=== PATIENT | female | born 1965 | race Caucasian/White ===

== ENCOUNTER 2019-07-16 15:19 | Inpatient (IN) | payer OTHER ==
[2019-07-16] MEDS ORDERED: Magnesium 2 GM/50 ML BAG (IN WATER) ONE (16:16)
[2019-07-16] MEDS ORDERED: Ondansetron ODT 4 MG TAB SL PRN (16:25)
[2019-07-16] MEDS ORDERED: Ondansetron PF 4 MG/2 ML Vial IVP PRN (16:25)
[2019-07-16] MEDS ORDERED: Albuterol Sulfate 2.5 mg/0.5 ml Neb ONE (16:29)
[2019-07-16] MEDS ORDERED: Albuterol Sulfate 2.5 mg/3 ml Neb ONE (16:29)
[2019-07-16] MEDS ORDERED: Acetaminophen 500 MG TAB ONE (17:13)
[2019-07-16 19:55] VITALS: BMI 41.9
[2019-07-16] MEDS ORDERED: Calcium Carbonate 500 MG ChewTAB PO PRN (22:28)
[2019-07-16] MEDS ORDERED: Lorazepam 1 MG TAB PO SCH (22:30)
[2019-07-16] MEDS ORDERED: Azithromycin 500 MG in Sodium Chloride 0.9% 250 ML 250 ML IVPB SCH (22:30)
[2019-07-16] MEDS ORDERED: traZODone HCl 50 MG TAB PO SCH (22:30)
[2019-07-16] MEDS ORDERED: Cepastat Lozenges 1 LOZ PO PRN (22:31)
[2019-07-16] MEDS ORDERED: hydrALAZINE 20 MG/ML VIAL SLOW IVP PRN (22:31)
[2019-07-16] MEDS ORDERED: Lorazepam 0.5 MG TAB PO SCH (22:45)
[2019-07-16] MEDS ORDERED: Cefepime 1 GM in Sodium Chloride 0.9% 100 ML IVPB SCH (23:00)
[2019-07-16] MEDS: guaiFENesin ER 600 MG TAB PO SCH (23:02)
[2019-07-16] MEDS: traMADol HCl 50 MG TAB PO PRN (23:09)
[2019-07-16] MEDS: Cyclobenzaprine 10 MG TAB PO PRN (23:09)
[2019-07-16] MEDS: methylPREDNISolone Sod Succ/PF 125 MG/2 ML VIAL IVP SCH (23:10)
[2019-07-17] MEDS: Diabetic Tussin 200 MG/10 ML UDCUP PO PRN ×3 (02:39→23:06)
[2019-07-17] MEDS: Acetaminophen 325 MG TAB PO PRN ×2 (02:41→08:47)
--- NOTE | 2019-07-17 03:17 | HP ---
The patient was seen and examined on July 16, 2019. PRIMARY CARE PHYSICIAN: Sharif Kendall. CHIEF COMPLAINT: Shortness of breath. HISTORY OF PRESENT ILLNESS: The patient is a 53-year-old white female with COPD, with chronic respiratory failure on 3 L oxygen, presented to the emergency room with worsening shortness of breath. She initially presented to [facility] and was transferred to this facility. The patient was diagnosed with pneumonia approximately 3 months ago and was admitted to [facility]. She was discharged after 7 days. Three weeks later, she had another episode of bronchitis that improved with Medrol Dosepak. Since then, she has on and off shortness of breath. Over the last 2 days, the patient developed worsening shortness of breath along with chest tightness and wheezing. She was short of breath on minimal exertion. She also had cough productive of thick whitish phlegm. Her temperature was 102.4 at home. She denies any orthopnea, leg swelling, sick contacts, chest discomfort, or syncope. Her initial vital signs at [facility] showed temperature of 99.6, respirations of 22, pulse rate of 117, with a blood pressure of 130/72, with O2 saturation of 93% on 3 L nasal cannula. Her workup was consistent with left lower lobe pneumonia. She received ceftriaxone, azithromycin, Solu-Medrol with IV fluid and nebulizer treatment, and was transferred to this facility. A CT angiogram of the chest was negative for pulmonary embolism. PAST MEDICAL HISTORY: 1. COPD. 2. Chronic hypoxic respiratory failure, on 3 L nasal cannula. 3. Chronic low back pain. 4. Anxiety/PTSD. 5. Depression with suicidal attempt in 2013. The patient denies any current suicidal ideation. 6. Morbid obesity with a BMI of 41.9. 7. History of renal calculi. 8. Mitral valve prolapse. 9. History of right breast mass, followed by her primary care physician. PAST SURGICAL HISTORY: 1. section x2. 2. Back surgery. 3. Right hip surgery. ALLERGIES: THE PATIENT IS ALLERGIC TO TRAZODONE. CURRENT HOME MEDICATIONS: 1. Lorazepam 1 mg b.i.d. 2. Seroquel 300 mg at bedtime. 3. DuoNeb as needed. 4. Trazodone 50 mg at bedtime. SOCIAL HISTORY: The patient is currently on 2 to 3 cigarettes a day and is trying to quit smoking. No alcohol or drug use. She currently lives at home with her family. FAMILY HISTORY: Positive for father with lung cancer with COPD. PHYSICAL EXAMINATION: VITAL SIGNS: As discussed above. GENERAL: A 53-year-old female, in [id number] respiratory distress, able to complete short phrases. HEENT: Head, atraumatic and normocephalic. Sclerae anicteric. Moist mucous membranes. No oral lesion. NECK: Supple. No JVD appreciated. No carotid bruit. LUNGS: Showed diffuse expiratory wheezing with rales and rhonchi at the left base. Mild accessory muscle use. HEART: S1, S2 present. Regular. Tachycardic. No rubs or gallops. ABDOMEN: Soft, obese. Bowel sounds present. No rebound or guarding. EXTREMITIES: No edema or calf tenderness. NEUROLOGIC: Grossly nonfocal. Moves all 4 extremities. PSYCHIATRIC: Alert, awake, and oriented x3. SKIN: Warm and dry. LYMPH NODES: No palpable lymph nodes in the neck. PERIPHERAL VASCULAR: Radial pulses palpable bilaterally. MUSCULOSKELETAL: No joint swelling tenderness. LABORATORY FINDINGS: WBC 9.7 with hemoglobin 14.3, hematocrit 43.8, platelet of 299. D-dimer was 0.46. Chemistry showed sodium 141, potassium 4, chloride 107, bicarb 22, BUN 7, creatinine 0.89. Lactic acid 2.5. BNP 39.4. Troponin was negative. IMAGING STUDIES: Chest x-ray by my review showed left lower lobe infiltrate. CT angiogram by my review was negative for pulmonary embolism. It showed right breast mass. Please note that the patient is aware of this right breast mass. EKG by my review showed sinus tachycardia. IMPRESSION: 1. Acute on chronic hypoxic respiratory failure secondary to pneumonia with chronic obstructive pulmonary disease exacerbation. 2. Severe sepsis secondary to left lower lobe pneumonia, suspected gram negative. 3. Chronic obstructive pulmonary disease exacerbation. 4. Anxiety/posttraumatic stress disorder. 5. Depression, mild, stable. The patient denies any suicidal ideation. 6. Morbid obesity with a BMI of 41.9. 7. Chronic low back pain. 8. Chronic kidney disease, stage 2. PLAN: The patient will be monitored on the medical floor. We will start her on cefepime along with azithromycin. Consult Pulmonary. Nebulizer treatment every 4 hours. Continue O2 supplementation. We will resume all of her home medications. Add Mucinex. Recheck lactic acid with the next blood draw. Repeat chest x-ray in 4 weeks. The patient understands the above plan of care. Job ID: [id number]
[2019-07-17] MEDS: methylPREDNISolone Sod Succ/PF 125 MG/2 ML VIAL IVP SCH ×4 (05:16→23:06)
[2019-07-17] MEDS: traMADol HCl 50 MG TAB PO PRN (05:19)
[2019-07-17 05:56] LABS: #Lymphocytes 0.8 thou/uL (1.20-3.40); #Monocytes 0.3 thou/uL (0.11-0.59); #Neutrophils 9.7 thou/uL (1.40-6.50); %Basophils 0.1 % (0.0-1.0); %Eosinophils 0.2 % (0.0-10.0); %Lymphocytes 7.3 % (21.0-51.0); %Neutrophils 89.4 % (42.0-75.0); Hemoglobin 13.6 g/dL (12.0-16.0); Mean Corpuscular HGB CONC 32.5 g/dL (32.0-36.0); Mean Corpuscular Hemoglobin 31.8 pg (27.0-31.0); Mean Corpuscular Volume 97.8 fL (78.0-98.0); Mean Platelet Volume 6.5 fL (7.4-10.4); Platelet Count 274 thou/uL (130-400); RBC Distribution Width 11.5 % (11.5-14.5); Red Blood Cell (RBC) Count 4.29 mill/uL (4.20-5.40); White Blood Cell (WBC) Count 10.9 thou/uL (4.8-10.8)
[2019-07-17 06:21] LABS: Phosphorus 2.4 mg/dL (2.3-4.7)
[2019-07-17 06:23] LABS: Anion Gap 14 mmol/L (10-20); BUN (Urea Nitrogen) 8 mg/dL (9.8-20.1); Calc. Creatinine Clearance 162 mL/min (70-130); Calcium 8.5 mg/dL (7.8-10.44); Carbon Dioxide 20 mmol/L (22-29); Chloride 111 mmol/L (98-107); Estimated GFR-MDRD 83; Glucose 150 mg/dL (70-105); Magnesium 2.3 mg/dL (1.6-2.6); Potassium 4.4 mmol/L (3.5-5.1); Sodium 141 mmol/L (136-145)
[2019-07-17 06:24] LABS: Lactic Acid 1.1 mmol/L (0.5-2.2)
[2019-07-17] MEDS: Cefepime 1 GM in Sodium Chloride 0.9% 100 ML IVPB SCH ×2 (08:47→20:43)
[2019-07-17] MEDS: Lorazepam 1 MG TAB PO PRN ×2 (08:47→23:03)
[2019-07-17] MEDS: Famotidine 20 MG TAB PO SCH ×2 (08:48→20:44)
[2019-07-17] MEDS: Senokot S 8.6-50 MG TAB PO SCH ×2 (08:48→20:44)
[2019-07-17] MEDS: Multivit, Therapeutic 1 TAB PO SCH (08:48)
[2019-07-17] MEDS: Saccharomyces boulardii 250 MG CAP PO SCH (08:48)
[2019-07-17] MEDS: Enoxaparin Sodium 40 MG/0.4 ML SYRINGE SC SCH (08:49)
[2019-07-17] MEDS: guaiFENesin ER 600 MG TAB PO SCH ×2 (08:49→20:44)
[2019-07-17] MEDS ORDERED: Lorazepam 1 MG TAB PO SCH (09:00)
[2019-07-17] MEDS: Cyclobenzaprine 10 MG TAB PO PRN ×2 (12:05→23:02)
--- NOTE | 2019-07-17 13:13 | CON ---
DATE OF CONSULTATION: HISTORY OF PRESENT ILLNESS: A 53-year-old morbidly obese female, who lives in [place], 117 kg, presents to the hospital with shortness of breath, coughing, and wheezing. She tells me she was diagnosed with COPD at age 29, secondhand smoke, though she did smoke for a period of time. She is presently disabled because of COPD. She has been to the [facility] some multiple times. She was told to go to a chief projectionist, but apparently did not take her insurance in [place], [place]. Now presents to the [facility] with shortness of breath and coughing without any fever or chills. She has low-flow O2 at home. It appears she can barely walk 50 feet without getting markedly short of breath. She is snoring. She has witnessed apnea. She has daytime fatigue. Chest x-ray was taken, which shows a left-sided infiltrate and a CAT scan confirms there is no PE was seen. She is grossly obese. No prior history of TB, but she has been in significant wheezing. Now is asthmatic. PAST MEDICAL HISTORY: COPD, asthma, depression, PTSD, and tobacco abuse. PAST SURGICAL HISTORY: Back surgery, hip surgery, orthopedic surgery, and . HOME MEDICINES: 1. Trazodone 50. 2. Seroquel 300. 3. DuoNeb. 4. Benztropine 1 mg. ALLERGIES: NONE. SOCIAL/FAMILY HISTORY: Disabled. Lives with who is also apparently disabled. PHYSICAL EXAMINATION: VITAL SIGNS: Temperature 98, pulse 90, and respirations 20, saturations are 98% on room air, blood pressure 150/75. CHEST: Diffuse wheezing. CARDIAC: Normal S1 and S2. No gallops. ABDOMEN: Soft without masses. LABORATORY DATA: White count 10,000. Lytes are normal. ASSESSMENT: Left-sided infiltrate, possible pneumonia, chronic asthma, COPD, morbid obesity, and sleep apnea. PLAN: She needs to be on indefinite Singulair and inhaled steroid. Otherwise, I agree with present treatment. I will follow outpatient sleep study. This is a 70-minute consultation note, 50% direct patient care. Job ID: [id number]
[2019-07-17] MEDS ORDERED: Azithromycin 500 MG in Sodium Chloride 0.9% 250 ML 250 ML IVPB SCH (14:00)
--- NOTE | 2019-07-17 15:50 | PDOC.HOSPP ---
- Subjective Encounter Date: 07/17/19 Encounter Time: 07:00 Subjective: breathing better now, no chest pain or palp she ambulates minimally at home has home O2 - Objective Vital Signs & Weight: Vital Signs (12 hours) Temp Pulse Resp BP Pulse Ox 07/17/19 14:46 84 16 92 L 07/17/19 11:50 97.7 F 90 20 103/65 93 L 07/17/19 10:41 87 16 97 07/17/19 08:00 98.4 F 90 20 111/75 93 L 07/17/19 07:22 94 L 07/17/19 07:21 85 16 94 L 07/17/19 05:00 98.1 F 90 17 120/65 93 L Weight Weight 251 lb 15.814 oz I&O: 07/16/19 07/17/19 07/18/19 06:59 06:59 06:59 Intake Total 780 Balance 780 Result Diagrams: 07/17/19 05:19 07/17/19 05:19 Hospitalist ROS - Medication Medications: Active Medications Generic Name Dose Route Start Last Admin Trade Name Freq PRN Reason Stop Dose Admin Acetaminophen 650 mg 07/16/19 22:28 07/17/19 08:47 Tylenol PO 650 mg Q4H PRN Administration Headache/Fever/Mild Pain (1-3) Albuterol/Ipratropium 3 ml 07/16/19 22:30 07/17/19 14:46 Duoneb NEB 3 ml [id number] ТАТЬЯНА Administration Cyclobenzaprine HCl 5 mg 07/16/19 22:25 07/17/19 12:05 Flexeril PO 07/18/19 22:26 5 mg TID PRN Administration Muscle Spasm Enoxaparin Sodium 40 mg 07/17/19 09:00 07/17/19 08:49 Lovenox SC 40 mg 0900 ТАТЬЯНА Administration Famotidine 20 mg 07/17/19 09:00 07/17/19 08:48 Pepcid PO 20 mg BID ТАТЬЯНА Administration Guaifenesin 600 mg 07/17/19 09:00 07/17/19 08:49 Mucinex PO 600 mg Q12HR ТАТЬЯНА Administration Guaifenesin 200 mg 07/16/19 22:31 07/17/19 10:33 Robitussin Sf PO 200 mg Q4H PRN Administration Cough Cefepime HCl 1 gm/ Sodium 100 mls @ 200 mls/hr 07/17/19 09:00 07/17/19 08:47 Chloride IVPB 100 mls Q12HR ТАТЬЯНА Administration Lorazepam 1 mg 07/16/19 22:32 07/17/19 08:47 Ativan PO 1 mg BID PRN Administration Anxiety Methylprednisolone Sodium Succinate 40 mg 07/16/19 23:59 07/17/19 12:06 Solu-Medrol IVP 40 mg Q6HR ТАТЬЯНА Administration Multivitamins 1 tab 07/17/19 09:00 07/17/19 08:48 Theragran PO 1 tab DAILY ТАТЬЯНА Administration Saccharomyces Boulardii 250 mg 07/17/19 09:00 07/17/19 08:48 Florastor PO 250 mg DAILY ТАТЬЯНА Administration Senna/Docusate Sodium 1 tab 07/17/19 09:00 07/17/19 08:48 Senokot S PO 1 tab BID ТАТЬЯНА Administration - Exam General Appearance: NAD, awake alert Eye: PERRL, anicteric sclera ENT: no oropharyngeal lesions, moist mucosa Neck: supple, no JVD Heart: RRR, no murmur Respiratory: no wheezes, no rales, rhonchi Gastrointestinal: soft, non-tender, non-distended, normal bowel sounds Extremities: no cyanosis, no edema Neurological: cranial nerve grossly intact, no focal deficits Psychiatric: normal affect, A&O x 3 Hosp A/P (1) COPD exacerbation Code(s): J44.1 - CHRONIC OBSTRUCTIVE PULMONARY DISEASE W (ACUTE) EXACERBATION Status: Acute (2) PNA (pneumonia) Code(s): J18.9 - PNEUMONIA, UNSPECIFIED ORGANISM Status: Acute Qualifiers: Pneumonia type: due to unspecified organism Laterality: left Lung location: lower lobe of lung Qualified Code(s): J18.9 - Pneumonia, unspecified organism (3) Morbid obesity Code(s): E66.01 - MORBID (SEVERE) OBESITY DUE TO EXCESS CALORIES Status: Chronic (4) EDMUNDO (obstructive sleep apnea) Code(s): G47.33 - OBSTRUCTIVE SLEEP APNEA (ADULT) (PEDIATRIC) Status: Suspected (5) Acute respiratory failure with hypoxia Code(s): J96.01 - ACUTE RESPIRATORY FAILURE WITH HYPOXIA Status: Acute (6) Insomnia Code(s): G47.00 - INSOMNIA, UNSPECIFIED Status: Chronic Qualifiers: Insomnia type: unspecified Qualified Code(s): G47.00 - Insomnia, unspecified - Plan is on cefepime and doxy, nebs, steroids, dulera, singulair, mucinex dc trazadone, continue seroquel high dose HS, is at risk of resp failure with duel psychotropic meds at bedtime suspected EDMUNDO for outpt sleep study to ambulate in hallway as tolerated hemostable has home O2
[2019-07-17] MEDS: Doxycycline 100 MG CAP PO SCH (20:44)
[2019-07-17] MEDS ORDERED: Montelukast Sodium 10 mg Tablet PO SCH (21:00)
[2019-07-17] MEDS ORDERED: traZODone HCl 50 MG TAB PO SCH (21:00)
[2019-07-17] MEDS: Mometasone/Formoterol 120 PUFF INHALER INH SCH (21:24)
[2019-07-18] MEDS: methylPREDNISolone Sod Succ/PF 125 MG/2 ML VIAL IVP SCH (05:28)
[2019-07-18] MEDS: Diabetic Tussin 200 MG/10 ML UDCUP PO PRN (05:28)
[2019-07-18 05:32] LABS: #Lymphocytes 0.9 thou/uL (1.20-3.40); #Monocytes 0.5 thou/uL (0.11-0.59); #Neutrophils 16.8 thou/uL (1.40-6.50); %Eosinophils 0.2 % (0.0-10.0); %Neutrophils 91.8 % (42.0-75.0); Mean Corpuscular HGB CONC 32.2 g/dL (32.0-36.0); Mean Corpuscular Hemoglobin 31.7 pg (27.0-31.0); Mean Corpuscular Volume 98.5 fL (78.0-98.0); Mean Platelet Volume 6.6 fL (7.4-10.4); Platelet Count 294 thou/uL (130-400); RBC Distribution Width 11.5 % (11.5-14.5); Red Blood Cell (RBC) Count 4.09 mill/uL (4.20-5.40); White Blood Cell (WBC) Count 18.3 thou/uL (4.8-10.8)
[2019-07-18 05:51] LABS: Anion Gap 11 mmol/L (10-20); BUN (Urea Nitrogen) 11 mg/dL (9.8-20.1); Calc. Creatinine Clearance 172 mL/min (70-130); Calcium 8.5 mg/dL (7.8-10.44); Carbon Dioxide 26 mmol/L (22-29); Chloride 109 mmol/L (98-107); Estimated GFR-MDRD 88; Glucose 189 mg/dL (70-105); Potassium 3.9 mmol/L (3.5-5.1); Sodium 142 mmol/L (136-145)
[2019-07-18] MEDS: Mometasone/Formoterol 120 PUFF INHALER INH SCH (07:23)
[2019-07-18] MEDS: Senokot S 8.6-50 MG TAB PO SCH (08:53)
[2019-07-18] MEDS: Famotidine 20 MG TAB PO SCH (08:53)
[2019-07-18] MEDS: guaiFENesin ER 600 MG TAB PO SCH (08:53)
[2019-07-18] MEDS: Doxycycline 100 MG CAP PO SCH (08:53)
[2019-07-18] MEDS: Saccharomyces boulardii 250 MG CAP PO SCH (08:53)
[2019-07-18] MEDS: Multivit, Therapeutic 1 TAB PO SCH (08:53)
[2019-07-18] MEDS: Cefepime 1 GM in Sodium Chloride 0.9% 100 ML IVPB SCH (08:56)
[2019-07-18] MEDS: Enoxaparin Sodium 40 MG/0.4 ML SYRINGE SC SCH (08:56)
[2019-07-18] MEDS: Cyclobenzaprine 10 MG TAB PO PRN (09:11)
--- NOTE | 2019-07-18 09:55 | PRG ---
DATE OF SERVICE: 07/18/2019 SUBJECTIVE: This morning, the patient is better, less short of breath, less cough, less wheezing. OBJECTIVE: VITAL SIGNS: Temperature 97, pulse 87, respiratory rate 24, saturations 98% on room air, blood pressure 122/76. CHEST: Decreased breath sounds. No wheezing. CARDIAC: Normal S1 and S2. No gallops. ABDOMEN: No masses. IMPRESSION: Bronchial asthma exacerbation, morbid obesity, and sleep apnea. PLAN: 1. Please note, she can be discharged home to follow up with her primary care physician and russian history professor out of town. 2. She needs to be discharged home on Singulair 10 mg a day, inhaled steroid either Dulera or Symbicort 2 puffs twice a day, Singulair 10 mg at nighttime, antibiotics for a week. 3. Encourage to lose weight. 4. Encourage to have an outpatient sleep study. Job ID: [id number]
[2019-07-18] MEDS: Lorazepam 1 MG TAB PO PRN (10:22)
[2019-07-18 15:00] VITALS: BP 126/86; TEMP 98.1
--- NOTE | 2019-07-18 17:28 | DIS ---
DATE OF ADMISSION: 07/16/2019 DATE OF DISCHARGE: 07/18/2019 DISCHARGE DISPOSITION: Home. PRIMARY DISCHARGE DIAGNOSIS: Acute respiratory failure with hypoxia secondary to chronic obstructive pulmonary disease exacerbation and pneumonia, resolving. SECONDARY DISCHARGE DIAGNOSES: Morbid obesity, suspected obstructive sleep apnea, insomnia. PROCEDURES DONE DURING HOSPITALIZATION: CT angio chest done on the day of admission showed no evidence of PE. The patient had an incidental finding of 1.9 x 3.2 cm oval circumscribed mass in the right breast, for which she will need a mammogram in the outpatient setting. Influenza A and B antigens were negative. One of two blood cultures grew gram-positive huong, likely contaminant. Had a white count of 9.7 with hemoglobin and hematocrit of 14 and 43. Discharge white count was 18, likely due to steroids. BUN 11, creatinine 0.7. BNP 39. INPATIENT CONSULT: Dr. Gnetile for Pulmonology. DISCHARGE MEDICATIONS: 1. DuoNeb q.i.d. p.r.n. 2. Ativan 1 mg p.o. twice daily. 3. Seroquel 300 mg p.o. at bedtime. 4. Doxycycline 100 mg p.o. twice daily for 6 days. 5. Dulera inhaler 200/5 mcg two puffs twice daily. 6. Singulair 10 mg p.o. q.p.m. 7. Prednisone taper starting at 10 mg twice daily for 3 days, then daily for 2 days, and to discontinue. ALLERGIES: TRAZODONE. DISCHARGE PLAN: The patient to follow up with her primary care physician at [facility] in 1 week. BRIEF COURSE DURING HOSPITALIZATION: The patient initially came to ER with complaints of shortness of breath and cough with expectoration of altered phlegm. She also had a temperature of 102 at home prior to arrival. She was placed on broad-spectrum antibiotics and has been transitioned to oral doxycycline at the time of discharge. The patient has underlying obstructive sleep apnea and likely obesity hypoventilation syndrome as well and needs outpatient sleep study. She was on Seroquel 300 mg at bedtime and trazodone 50 mg at bedtime as well. She was taking these two for insomnia per the patient. Her trazodone was discontinued. She has recovered well with her COPD exacerbation. Prior to discharge, the patient is ambulating in the room. She is essentially on room air and saturating 93% at the time of discharge. She has been cleared by Dr. Gentile for discharge. The patient was strongly counseled to have outpatient sleep study through her primary care physician's office. Please note, I have seen and examined the patient on the day of discharge. Job ID: [id number]
--- NOTE | 2019-07-19 04:58 | PQF ---
FELIZ RODRIGUEZ VINAYA KUMAR MD [id number] -[id number] CLINICAL DOCUMENTATION CLARIFICATION FORM: POST DISCHARGE Addendum to original discharge summary date: ____ Late entry note date: __ DATE: 07/19/2019 ATTN: Giovani Aguilera Please exercise your independent, professional judgment in responding to the clarification form. Clinical indicators are provided on the bottom of this form for your review Please check appropriate box(s) to clarify if the following diagnosis has been ruled in or ruled out: Sepsis [ ] Ruled in diagnosis [ ] Continue to treat [ ] Resolved [x ] Ruled out diagnosis [ ] Cannot rule out diagnosis [ ] Other diagnosis [ ] Unable to determine In addition, please specify: Present on Admission (POA): [x ] Yes [ ] No [ ] Unable to determine For continuity of documentation, please document condition throughout progress notes and discharge summary. Thank You. CLINICAL INDICATORS - SIGNS / SYMPTOMS / LABS Vital sign 2/ Resp 22, O2 sat 93 Laboratory Chemistry / WBC 10.9 H&P p1 2/2 Dr Carlos Presented to ER with worsening SOB H&P p1 2/2 Dr Carlos Her workup was consistent with left lower lobe pneumonia RISK FACTORS H&P p1 2/2 COPD H&P p1 2/2 Chronic Respiratory failure on 3L oxygen H&P p3 2/2 Severe Sepsis secondary to LLL Pneumonia H&P p3 2/2 Acute on chronic hypoxic respiratory failure H&P p3 2/2 COPD exacerbation TREATMENTS MAR 2/ IV Cefepime MAR 2/ Doxycycline Respiratory panel 2/2 Oxygen 3L via nasal cannula H&P p3 2/2 Repeat chest x-day Pulmonary consult 07/17 Dr Seferino Tello (This form is maintained as a part of the permanent medical record) 2014 [employer]. All Rights Reserved [email or web address]
[2019-07-19] MEDS ORDERED: predniSONE 20 MG TAB PO SCH (08:00)
== END 2019-07-18 15:06 | disposition home or self-care (01) | DRG 193 ==
LOC: ERS 15:19 → T4-B 16:40
PROVIDERS: ADMIT Internal Medicine; ATTEND Internal Medicine
DX: J18.9 Pneumonia, unspecified organism (principal); J96.21 Acute and chronic respiratory failure with hypoxia; J44.1 Chronic obstructive pulmonary disease with (acute) exacerbation; J44.0 Chronic obstructive pulmonary disease with (acute) lower respiratory infection; Z68.41 Body mass index [BMI] 40.0-44.9, adult; E66.2 Morbid (severe) obesity with alveolar hypoventilation; J45.901 Unspecified asthma with (acute) exacerbation; G47.00 Insomnia, unspecified; F41.9 Anxiety disorder, unspecified; F43.10 Post-traumatic stress disorder, unspecified; F32.9 Major depressive disorder, single episode, unspecified; G89.29 Other chronic pain; M54.5 Low back pain; F17.210 Nicotine dependence, cigarettes, uncomplicated; N18.2 Chronic kidney disease, stage 2 (mild); Z88.8 Allergy status to other drugs, medicaments and biological substances; Z99.81 Dependence on supplemental oxygen; Z79.899 Other long term (current) drug therapy
CPT/HCPCS: 36415; 80048; 83605; 83735; 84100; 85025; 94640; 94760; 96361; 96365; J0692; J1650; J2930; J3475; J3490; J7611; J7620

== ENCOUNTER 2019-08-14 12:39 | Inpatient (IN) | payer OTHER ==
[2019-08-14] MEDS ORDERED: Aspirin 300 MG Suppository ONE (12:59)
[2019-08-14] MEDS ORDERED: Metoclopramide HCl 10 MG/2 ML VIAL ONE (12:59)
[2019-08-14] MEDS ORDERED: diphenhydrAMINE 50 MG/ML VIAL ONE (12:59)
[2019-08-14] MEDS ORDERED: Lorazepam 2 MG/ML VIAL ONE (15:13)
--- NOTE | 2019-08-14 15:38 | HP ---
PRIMARY CARE PHYSICIAN: Darvin Olguin. CHIEF COMPLAINT: Acute stroke. HISTORY OF PRESENT ILLNESS: This is a 54-year-old white female with a history of a previous stroke back in 2016 or 17 that had some right-sided weakness and a right peripheral vision defect that had mostly resolved except for the vision defect. She was in her normal state of health until the past couple of months when she has been struggling with some COPD exacerbations and pneumonia episodes. She was admitted here last month for a possible sepsis and was kept in the hospital a couple days for COPD. She reports that she started getting some more coughing and congestion over the last few days, but was moving with her normal amount of strength up until last night. The patient reports that she has been under a lot of stress, especially since her daughter just recently told her that she does want to talk to her again. The patient went to sleep last night without any neurologic deficits. When she woke up this morning, she felt very weak, was having trouble finding words to say, so she got her significant other to call an ambulance. When the ambulance arrive there they did find that she had a right-sided facial droop that was new along with right-sided weakness in her arm and leg and so she was brought into [facility]. There, she was given aspirin. She had a negative CT of the head and negative CTA of the head and neck. She had failed her swallow study there. She was transferred here for admission for her acute stroke. REVIEW OF SYSTEMS: CONSTITUTIONAL: No fevers. No chills. EYES: No double vision or blurred vision. She does have a right-sided peripheral field defect that is chronic. ENT: No congestion or drainage or sore throat. CARDIOVASCULAR: She does get intermittent chest pains occasionally. She thinks she may have had some this morning. No chest pain currently. No palpitations or racing heart. PULMONARY: She has coughing wheezing and feels short of breath especially when her anxiety kicks up. She is on 2 to 3 L of oxygen at home. GI: No abdominal pain. No nausea or vomiting. No diarrhea or constipation. GENITOURINARY: No dysuria or hematuria. MUSCULOSKELETAL: No muscle aches or joint pain. SKIN: No rashes or lesions she has noted. NEUROLOGIC: See HPI. She also noticed some decreased sensation on her right arm and leg. PSYCHIATRIC: Positive for depression and anxiety. PAST MEDICAL HISTORY: 1. COPD, on home oxygen at 3 L. 2. Morbid obesity. 3. Obstructive sleep apnea and likely hypoventilation syndrome. 4. Previous renal calculi. 5. Mitral valve prolapse. 6. Right breast mass followed by primary care physician. 7. Chronic low back pain. 8. Morbid obesity. 9. Previous ischemic stroke. 10. Hyperlipidemia. PSYCHIATRIC HISTORY: 1. PTSD. 2. Anxiety and depression with previous suicide attempt in 2014. SURGICAL HISTORY: 1. x2. 2. Back surgery. 3. Right hip surgery. SOCIAL HISTORY: The patient smokes cigarettes, currently has cut down to 2 to 3 cigarettes a day and is trying to quit smoking. No alcohol or illicit drug use. She currently lives with her spouse, Cordell Roland who is also her medical decision maker. ALLERGIES: TRAZODONE. CURRENT MEDICATIONS: The patient did not bring her medication list and is not certain of her medicines, but believes that she takes 1. Lorazepam 1 mg twice a day. 2. Seroquel 300 mg at night. 3. DuoNeb as needed. 4. Benztropine, unknown dose. 5. We stopped on her trazodone most recently and also stopped on her Geodon due to some shaking that she was getting. 6. Simvastatin recently started, unknown dose. FAMILY HISTORY: Positive for father with lung cancer and with multiple family members with emphysema and COPD. PHYSICAL EXAMINATION: VITAL SIGNS: Blood pressure 106/75, pulse 103, respirations 22, O2 saturation 92% on 2 L nasal cannula, temperature 98.4. GENERAL: This is a well-developed obese white female, who is in some mild respiratory distress. HEENT: Eyes, pupils equal, round, and reactive to light. Oropharynx clear without lesions, erythema, or exudate. NECK: Supple. No lymphadenopathy. No thyroid nodules or enlargement. HEART: Regular rate and rhythm. No murmurs, rubs, or gallops. LUNGS: Bilateral diffuse wheezing and increased work of breathing. She is able to speak in partial sentences without too much worsening of her shortness of breath and no coughing visualized. ABDOMEN: Obese, nontender to palpation. Normoactive bowel sounds. No hepatosplenomegaly or other masses. EXTREMITIES: No clubbing, cyanosis, or edema. SKIN: No rashes or lesions noted. NEUROLOGIC: The patient has a right facial droop. She has clear speech. No tongue deviation. She has intact extraocular movements. She does have 3/5 to 4/5 strength in the right upper extremity, 3/5 strength in her right lower extremity, 5/5 strength in left upper and lower extremities. She has decreased sensation in her right upper and lower extremities as well. PSYCHIATRIC: Alert and oriented x3. Normal mood and affect. LABORATORY DATA: CBC within normal limits. Complete metabolic panel within normal limits. Troponin negative. Glucose normal. CT scan of the brain done in [place] shows no acute intracranial processes. CTA of the head and neck shows no hemodynamically significant stenosis, occlusion or aneurysm formation. EKG done in the emergency room shows sinus tachycardia with a low-voltage QRS, but no other abnormalities. ASSESSMENT: 1. Acute ischemic stroke. We will continue patient on aspirin and we will admit her to the stroke floor. We will get an MRI and a neurology consult. We will have Physical and Occupational therapy consult. Will also make the patient n.p.o. due to failing the bedside swallow and we will have Speech Therapy consult on her. It does not look like the patient was on aspirin at home, so she will need to be on that from now on. She was recently started on simvastatin, apparently, unknown dose. I will start her on atorvastatin here in the hospital. 2. Chronic obstructive pulmonary disease with acute wheezing and symptoms. We will give patient DuoNeb as needed and we will put her on some Solu-Medrol. Uncertain if she is on any prednisone chronically at home at this point. We will have pulmonology consult on her case while she is in the hospital as well. 3. Hyperlipidemia. We will put the patient on atorvastatin. 4. Gastrointestinal prophylaxis. We will put the patient on Pepcid twice a day. 5. Deep venous thrombosis prophylaxis. We will put the patient on Lovenox subcu. 6. Chronic anxiety. We will give patient Ativan intravenous p.r.n. 7. Bipolar disorder and depression. We will continue patient's Seroquel. CODE STATUS: I discuss this with the patient. She is a full code. Should she be incapacitated, her spouse to be her medical decision maker. His name is Cordell Roland. Job ID: [id number]
[2019-08-14] MEDS ORDERED: Ondansetron PF 4 MG/2 ML Vial IVP PRN (19:07)
[2019-08-14] MEDS ORDERED: Lorazepam 2 MG/ML VIAL SLOW IVP PRN (19:07)
[2019-08-14] MEDS ORDERED: hydrALAZINE 20 MG/ML VIAL SLOW IVP PRN (19:07)
[2019-08-14] MEDS ORDERED: Guaifenesin DM 100-10/5 ML UDCUP PO PRN (19:07)
[2019-08-14] MEDS ORDERED: Ondansetron ODT 4 MG TAB PO PRN (19:07)
[2019-08-14] MEDS ORDERED: Bisacodyl 10 MG SUPP PR PRN (19:07)
[2019-08-14] MEDS ORDERED: Acetaminophen 650 MG Suppository PR PRN (19:07)
[2019-08-14] MEDS ORDERED: Senokot S 8.6-50 MG TAB PO PRN (19:07)
[2019-08-14] MEDS ORDERED: Labetalol HCl 100 MG/20 ML VIAL SLOW IVP PRN (19:07)
[2019-08-14] MEDS ORDERED: Mometasone/Formoterol 120 PUFF INHALER INH SCH (19:15)
[2019-08-14] MEDS: Mometasone/Formoterol 120 PUFF INHALER INH SCH (20:44)
[2019-08-14] MEDS ORDERED: Atorvastatin Calcium 40 MG TAB PO SCH (21:00)
[2019-08-14] MEDS ORDERED: Montelukast Sodium 10 mg Tablet PO SCH (21:00)
[2019-08-14 21:43] VITALS: BMI 47.5
[2019-08-14] MEDS: methylPREDNISolone Sod Succ 40 MG VIAL IVP SCH (21:45)
[2019-08-14] MEDS: Famotidine/PF 20 mg/2ml Vial SLOW IVP SCH (21:45)
[2019-08-14] MEDS: Acetaminophen 325 MG TAB PO PRN (21:45)
[2019-08-15] MEDS: methylPREDNISolone Sod Succ 40 MG VIAL IVP SCH ×2 (02:48→09:40)
[2019-08-15] MEDS ORDERED: Fioricet 325/50/40 mg Tablet PO SCH (03:30)
[2019-08-15 04:58] LABS: #Lymphocytes 0.9 thou/uL (1.20-3.40); #Monocytes 0.1 thou/uL (0.11-0.59); #Neutrophils 7.1 thou/uL (1.40-6.50); %Eosinophils 0.3 % (0.0-10.0); %Lymphocytes 10.6 % (21.0-51.0); %Monocytes 0.8 % (0.0-10.0); %Neutrophils 88.2 % (42.0-75.0); Hemoglobin 14.7 g/dL (12.0-16.0); Mean Corpuscular HGB CONC 33.6 g/dL (32.0-36.0); Mean Corpuscular Hemoglobin 33.1 pg (27.0-31.0); Mean Corpuscular Volume 98.5 fL (78.0-98.0); Mean Platelet Volume 6.2 fL (7.4-10.4); Platelet Count 311 thou/uL (130-400); Red Blood Cell (RBC) Count 4.42 mill/uL (4.20-5.40)
[2019-08-15 05:14] LABS: Anion Gap 13 mmol/L (10-20); BUN (Urea Nitrogen) 15 mg/dL (9.8-20.1); Calc. Creatinine Clearance 162 mL/min (70-130); Carbon Dioxide 21 mmol/L (22-29); Cardiac Risk 2.7 (Less than 4.5); Chloride 106 mmol/L (98-107); Cholesterol 144 mg/dl (< 200 Desired); Estimated GFR-MDRD 72; Glucose 190 mg/dL (70-105); HDL Cholesterol 54 mg/dL (>60 Neg Risk); LDL Cholesterol, Calculated 72 mg/dL; Potassium 4.5 mmol/L (3.5-5.1); Sodium 135 mmol/L (136-145); Triglycerides 91 mg/dL (Less than 150)
[2019-08-15] MEDS ORDERED: Lorazepam 2 MG/ML VIAL SLOW IVP SCH ×2 (05:30→06:45)
[2019-08-15] MEDS: Mometasone/Formoterol 120 PUFF INHALER INH SCH (07:11)
[2019-08-15 08:35] VITALS: BP 92/70; TEMP 97.9
[2019-08-15] MEDS ORDERED: Enoxaparin Sodium 40 MG/0.4 ML SYRINGE SC SCH (09:00)
[2019-08-15] MEDS ORDERED: Aspirin 300 MG Suppository PR SCH (09:00)
--- NOTE | 2019-08-15 09:34 | MRI ---
MRI BRAIN WITHOUT CONTRAST: Date: 08/15/2019 HISTORY: Right-sided weakness, stroke. FINDINGS: Correlation is made with the previous day's CT scan. No restricted diffusion is seen. There are multiple foci of T2 prolongation in the periventricular wh ite matter consistent with chronic small vessel ischemic disease. No evidence of infarct, hemorrhage, midline shift, or abnormal extra-axial fluid collections are seen. The ventricular size is appropria te and the basilar cisterns are patent. There is a mucus retention cyst versus polyp in the left maxi llary sinus. IMPRESSION: No evidence of acute intracranial process. POS: TPC
[2019-08-15] MEDS: Acetaminophen 325 MG TAB PO PRN (09:40)
[2019-08-15] MEDS: Famotidine/PF 20 mg/2ml Vial SLOW IVP SCH (09:40)
--- NOTE | 2019-08-15 09:40 | CON ---
DATE OF CONSULTATION: HISTORY OF PRESENT ILLNESS: No Ambriz is a morbidly obese 54-year-old female, who presented to the ER with weakness as outlined by the ER note, came from [facility] yesterday evening. She is now in the MICU. She is scheduled to go for an MRI. She is verbalizing, moving all 4 extremities. She has localized symptoms with some weakness in the right upper extremity. Extensive history is outlined from her recent discharge no more than 2 weeks ago, pertinent for chronic asthma, COPD, morbid obesity, sleep apnea, multiple CVAs, and mitral valve prolapse. PAST SURGICAL HISTORY: Back surgeries x2, hip surgery, and . SOCIAL HISTORY: As outlined. Former smoker. REVIEW OF SYSTEMS: Otherwise, unremarkable. HOME MEDICATIONS: Included: 1. DuoNeb. 2. Low-dose prednisone. 3. Ativan p.r.n. 4. Dulera. 5. Singulair 10. 6. Seroquel 300. 7. Trazodone 50. 8. Simvastatin 40. PHYSICAL EXAMINATION: GENERAL: Awake, alert, and responsive, morbidly obese. VITAL SIGNS: Temperature 97, pulse 95, respiratory rate 20, and saturations are 96% on 2 L, and blood pressure 92/70. CHEST: Extensive rhonchi and crackles. CARDIAC: Normal S1 and S2. No gallop. ABDOMEN: Massive. EXTREMITIES: No edema. NEUROLOGIC: Awake. Moves all 4 extremities. LABORATORY DATA: White count 8000, H and H 14 and 43, platelet count is normal. Lytes are normal. IMAGING STUDIES: CT of brain, no acute changes were seen. CT angio, no hemodynamic significant stenosis. ASSESSMENT: Right-sided weakness, stroke-like symptoms, transient ischemic attack, morbid obesity, chronic obstructive pulmonary disease, probably sleep apnea, and asthma. PLAN: Pulmonary darnell, she is on adequate treatment. Aggressive PT, supportive care. Pulmonary will follow for the next 24 hours until she is stabilized. Consultation note, 70 minutes, 50% direct patient care. Job ID: [id number]
[2019-08-15] MEDS ORDERED: Aspirin 325 MG TAB PO SCH (10:00)
--- NOTE | 2019-08-15 11:15 | DIS ---
DATE OF ADMISSION: 08/14/2019 DATE OF DISCHARGE: 08/15/2019 DISCHARGE DIAGNOSES: 1. Chronic obstructive pulmonary disease without exacerbation. 2. Chronic hypoxic respiratory failure, on oxygen supplementation at 2 to 3 L/minute by nasal cannula. 3. Anxiety disorder. 4. Hyperlipidemia. 5. Tobacco use. CONSULTATIONS: Dr. Gentile with Pulmonology Service. PERTINENT LABORATORY AND X-RAY FINDINGS: Basic metabolic profile within normal limits. Total cholesterol 144, triglycerides 91, HDL 54, and LDL 72. CBC showed a white blood cell count of 8.0, hemoglobin 15, hematocrit 44, MCV 99, and platelet count 311. CT of the brain without contrast dated 08/14/2019, showed no acute intracranial process. CT angiogram of the head and neck dated 08/14/2019, showed no focal stenosis. MRI of the brain dated 08/15/2019, showed no acute intracranial process. Chronic ischemic white matter changes noted. HOSPITAL COURSE: The patient was admitted to the Stroke Unit after initially presenting with right-sided weakness and facial paresthesias concerning for CVA. The patient underwent initial neuroimaging with CT modality showing no acute process. The patient underwent MRI imaging of the brain showing no acute process. The patient was noted with increased anxiety related to family matters prior to admission with likely contributing factor to presentation. Metabolic and neuroimaging was unremarkable as stated previously. Telemetry monitoring showed sinus mechanism without evidence of acute arrhythmia or dysrhythmia. Overall, the patient did remain clinically stable during the hospital course, tolerating regular oral intake with stable vital signs. The patient at baseline respiratory status requiring 2 L/minute by nasal cannula chronically. I have examined the patient at the time of discharge and discussed followup instructions. The patient verbalizes understanding and in agreement and ready for discharge on 08/15/2019. DISCHARGE MEDICATIONS: 1. DuoNeb 3 mL nebulized q.i.d. p.r.n. 2. Seroquel 300 mg p.o. at bedtime. 3. Simvastatin 40 mg p.o. at bedtime. 4. Enteric-coated aspirin 81 mg p.o. daily. 5. Trazodone 150 mg p.o. at bedtime. 6. Lorazepam 0.5 mg p.o. b.i.d. #20 given, no refills. 7. Dulera 2 puffs inhaled b.i.d. 8. Singulair 10 mg p.o. at bedtime. FOLLOWUP: The patient to follow up with [facility] in [place], [place] within 7 days of discharge. CONDITION ON DISCHARGE: Fair. ACTIVITY: Ad-tim. DIET: Heart healthy. CODE STATUS: Full. DISPOSITION: Home on 08/15/2019. TIME SPENT: Total time preparing and coordinating discharge, 35 minutes. Job ID: [id number]
[2019-08-16] MEDS ORDERED: Aspirin 325 MG TAB PO SCH (09:00)
== END 2019-08-15 12:05 | disposition home or self-care (01) | DRG 880 ==
LOC: ERS 12:39 → 2SE 13:05
PROVIDERS: ADMIT Emergency Medicine; ATTEND Emergency Medicine
DX: F41.9 Anxiety disorder, unspecified (principal); Z68.42 Body mass index [BMI] 45.0-49.9, adult; J96.11 Chronic respiratory failure with hypoxia; I69.351 Hemiplegia and hemiparesis following cerebral infarction affecting right dominant side; J44.9 Chronic obstructive pulmonary disease, unspecified; E66.01 Morbid (severe) obesity due to excess calories; G47.33 Obstructive sleep apnea (adult) (pediatric); Z99.81 Dependence on supplemental oxygen; Z87.442 Personal history of urinary calculi; E78.5 Hyperlipidemia, unspecified; Z86.73 Personal history of transient ischemic attack (TIA), and cerebral infarction without residual deficits; F43.10 Post-traumatic stress disorder, unspecified; F17.210 Nicotine dependence, cigarettes, uncomplicated; F31.9 Bipolar disorder, unspecified; I34.1 Nonrheumatic mitral (valve) prolapse; R40.2362 Coma scale, best motor response, obeys commands, at arrival to emergency department; R40.2142 Coma scale, eyes open, spontaneous, at arrival to emergency department; R40.2252 Coma scale, best verbal response, oriented, at arrival to emergency department; R29.708 NIHSS score 8
CPT/HCPCS: 36415; 70551; 80048; 80061; 85025; 93005; 94640; 94664; 96365; 96375; J1200; J1650; J2060; J2765; J2920; J7620; S0028

== ENCOUNTER 2019-11-27 12:08 | Emergency (ER) | payer OTHER ==
[2019-11-27] MEDS ORDERED: Morphine 4 MG/ML VIAL ONE (12:39)
[2019-11-27] MEDS ORDERED: Ondansetron PF 4 MG/2 ML Vial ONE (12:39)
--- NOTE | 2019-11-27 13:21 | RAD ---
EXAM: 2 views of the left foot HISTORY: Foot pain COMPARISON: None FINDINGS: 2 views of the left foot shows no evidence of acute fracture or dislocation of the bones of the foot. There is a fracture dislocation of the ankle that is partially visualized.. Mild ankle soft tissue swelling is seen. No degenerative changes are present. IMPRESSION: No evidence of acute osseous abnormality of the bones of the foot.
--- NOTE | 2019-11-27 13:21 | RAD ---
Exam:3 views right ankle HISTORY: Swelling. COMPARISON: None FINDINGS: Indeterminate avulsive injury at the lateral malleolus. Associated soft tissue swelling. Ad ditional fractures are not appreciated. IMPRESSION: Soft tissue swelling with indeterminate avulsive injury involving the lateral malleolus.
--- NOTE | 2019-11-27 13:22 | RAD ---
Exam:Left tibia fibula 2 views HISTORY: Pain. Deformity. COMPARISON: None FINDINGS: Medial malleolus or posterior malleolar fracture. There is subluxation of the distal tibia with respect to the talus Distal fibula and proximal fibular fractures with mild displacement IMPRESSION: 1. Distal fibula and proximal fibular fractures 2. Bimalleolar fractures. Subluxation of the tibiotalar articulation.
--- NOTE | 2019-11-27 13:23 | RAD ---
EXAM: 3 views of the left ankle HISTORY: Ankle deformity and swelling after injury COMPARISON: None FINDINGS: 3 views of the left ankle shows a trimalleolar fracture of the ankle. There is widening of the tibiofibular syndesmosis. There is dislocation of the tibiotalar joint. Moderate soft tissue swelling is seen. No degenerative changes are present. IMPRESSION: Trimalleolar fracture dislocation of the left ankle
[2019-11-27] MEDS ORDERED: Fentanyl 100 MCG/2 ML VIAL ONE (14:28)
[2019-11-27] MEDS ORDERED: Ketamine 50 MG/ML (10ML VIAL) ONE (14:35)
[2019-11-27 14:52] LABS: #Eosinphils 0.2 thou/uL (0.0-0.7); #Lymphocytes 1.6 thou/uL (1.20-3.40); #Monocytes 0.7 thou/uL (0.11-0.59); #Neutrophils 9.6 thou/uL (1.40-6.50); %Basophils 0.4 % (0.0-1.0); %Eosinophils 1.3 % (0.0-10.0); %Lymphocytes 13.4 % (21.0-51.0); %Monocytes 5.4 % (0.0-10.0); %Neutrophils 79.5 % (42.0-75.0); Hemoglobin 15.3 g/dL (12.0-16.0); Mean Corpuscular Hemoglobin 33.2 pg (27.0-31.0); Mean Corpuscular Volume 97.5 fL (78.0-98.0); Mean Platelet Volume 6.2 fL (7.4-10.4); Platelet Count 370 thou/uL (130-400); RBC Distribution Width 11.5 % (11.5-14.5); Red Blood Cell (RBC) Count 4.62 mill/uL (4.20-5.40); White Blood Cell (WBC) Count 12.1 thou/uL (4.8-10.8)
[2019-11-27 14:59] LABS: PTT 27.5 sec (22.9-36.1); Prothrombin Time 12.8 sec (12.0-14.7)
[2019-11-27 15:15] LABS: ALT (SGPT) 12 U/L (8-55); AST (SGOT) 12 U/L (5-34); Albumin 3.9 g/dL (3.5-5.0); Alkaline Phosphatase 85 U/L (40-110); Anion Gap 12 mmol/L (10-20); BUN (Urea Nitrogen) 7 mg/dL (9.8-20.1); Bilirubin, Total 0.3 mg/dL (0.2-1.2); Calc. Creatinine Clearance 0 mL/min (70-130); Calcium 8.6 mg/dL (7.8-10.44); Carbon Dioxide 22 mmol/L (22-29); Chloride 110 mmol/L (98-107); Estimated GFR-MDRD 68; Glucose 109 mg/dL (70-105); Potassium 4.7 mmol/L (3.5-5.1); Protein, Total 6.9 g/dL (6.0-8.3); Sodium 139 mmol/L (136-145)
--- NOTE | 2019-11-27 15:26 | RAD ---
XR Tib Fib Lt Leg 2 View INDICATION: Post reduction FINDINGS: Bones: Since the comparison examination there is been interval placement of an overlying fiberglass s plint. Fracture alignment involving the proximal fibular shaft fracture is similar appearing. There is improved coverage of the talar dome involving the posterior lateral trimalleolar left ankle fractu re. Joints: No acute abnormality. Soft tissues: No radiopaque foreign body is evident. IMPRESSION: Post reduction of the left ankle and left proximal fibular fractures as above.
--- NOTE | 2019-11-27 15:27 | RAD ---
Chest AP view INDICATION: Preop chest radiograph COMPARISON: December 16, 2015 FINDINGS: Lungs: The lungs are clear Cardiac silhouette: The cardiomediastinal silhouette appears within normal limits. Pulmonary vasculature: Normal Pleural spaces: No pleural effusion or pneumothorax is demonstrated. Upper abdomen: No abnormality seen. Osseous structures: No acute osseous abnormality. Additional findings: None. IMPRESSION: No acute cardiopulmonary abnormality.
--- NOTE | 2019-11-27 17:40 | PDOC.EVN ---
Event Note - Event Note Event Note: called to see patient. [facility] briefly in ER, d/w ER , reviewed imaging. Patient fracture reduced, she states pain controlled. D/w orthopedics DENILSON Dye , will f/u outpatient and no need for surgery today or tomorrow. D/c from ER recommended. D/w ER MD Cao, he will handle. No other care provided.
--- NOTE | 2019-12-02 12:30 | EKG ---
Test Reason : Blood Pressure : / mmHG Vent. Rate : 106 BPM Atrial Rate : 106 BPM P-R Int : 120 ms QRS Dur : 082 ms QT Int : 362 ms P-R-T Axes : 047 018 038 degrees QTc Int : 480 ms Sinus tachycardia Possible Left atrial enlargement Low voltage QRS Borderline ECG Confirmed by DANIEL MAYNARD DO ([id number]), market editor MISAEL OMALLEY ([id number]) on 12/02/2019 12:30:16 PM Referred By: Confirmed By:DANIEL MAYNARD DO
== END 2019-11-27 17:08 | disposition home or self-care (01) ==
LOC: ERS 12:08
DX: S82.852A Displaced trimalleolar fracture of left lower leg, initial encounter for closed fracture (principal); S82.832A Other fracture of upper and lower end of left fibula, initial encounter for closed fracture; J44.9 Chronic obstructive pulmonary disease, unspecified; F32.9 Major depressive disorder, single episode, unspecified; Z79.899 Other long term (current) drug therapy; Z87.891 Personal history of nicotine dependence; W18.30XA Fall on same level, unspecified, initial encounter
CPT/HCPCS: 27818; 36415; 71045; 80053; 84484; 85025; 85610; 85730; 86850; 86900; 86901; 93005; 96361; 96374; 96375; 99152; J2270; J2405; J3010

== ENCOUNTER 2021-05-14 14:42 | Outpatient (CLI) | payer OTHER | END 2021-05-14 14:43 | disposition home or self-care (01) | LOC: RAD 14:42 | PROVIDERS: ATTEND Internal Medicine Critical Care Medicine | DX: R06.00 Dyspnea, unspecified (principal) | CPT/HCPCS: 71046 ==

== ENCOUNTER 2021-05-22 15:52 | Outpatient (CLI) | payer OTHER ==
[2021-05-22 18:30] LABS: #Eosinphils 0.3 10x3/uL (0.0-0.5); #Monocytes 0.5 10x3/uL (0.0-1.1); #Neutrophils 6.1 10x3/uL (1.5-8.4); %Basophils 0.5 % (0.0-2.0); %Eosinophils 3.1 % (0.0-6.0); %Lymphocytes 21.5 % (18.0-47.0); %Monocytes 5.9 % (0.0-10.0); %Neutrophils 68.5 % (40.0-75.0); Hemoglobin 13.6 g/dL (12.0-15.5); Mean Corpuscular HGB CONC 31.9 g/dL (32.0-36.0); Mean Corpuscular Volume 94.1 fl (81.6-98.3); Mean Platelet Volume 9.1 fl (7.4-10.4); Platelet Count 352 10x3/uL (150-450); RBC Distribution Width 12.5 % (11.5-14.5); Red Blood Cell (RBC) Count 4.54 10x6/uL (3.90-5.03); White Blood Cell (WBC) Count 8.8 10x3/uL (3.5-10.5)
[2021-05-22 18:58] LABS: ALT (SGPT) 18 U/L (8-55); AST (SGOT) 15 U/L (5-34); Albumin 3.9 g/dL (3.5-5.0); Alkaline Phosphatase 96 U/L (40-110); Anion Gap 12 mmol/L (10-20); BUN (Urea Nitrogen) 6 mg/dL (9.8-20.1); Bilirubin, Total 0.3 mg/dL (0.2-1.2); Calc. Creatinine Clearance 0 mL/min (70-130); Carbon Dioxide 30 mmol/L (22-29); Chloride 106 mmol/L (98-107); Globulin 2.7 g/dL (2.4-3.5); Glucose 91 mg/dL (70-105); Potassium 4.5 mmol/L (3.5-5.1); Protein, Total 6.6 g/dL (6.0-8.3); Sodium 143 mmol/L (136-145)
[2021-05-23 07:59] LABS: SARS-CoV-2 PCR by NAA Not Detected (NotDetected)
== END 2021-05-22 15:53 | disposition home or self-care (01) ==
LOC: LABBT 15:52
PROVIDERS: ATTEND Internal Medicine Cardiovascular Disease
DX: Z01.818 Encounter for other preprocedural examination (principal); Z20.822 Contact with and (suspected) exposure to COVID-19
CPT/HCPCS: 80053; 85025; 93005; 93010; U0003; U0005

== ENCOUNTER 2023-06-09 21:04 | Inpatient (IN) | payer OTHER ==
[2023-06-09 23:13] VITALS: BMI 46.9
[2023-06-09] MEDS ORDERED: Acetaminophen 325 MG TAB PO PRN (23:33)
[2023-06-09] MEDS ORDERED: Ipratropium/Albuterol 3 ML NEB NEB PRN (23:38)
[2023-06-09] MEDS ORDERED: Ipratropium/Albuterol 3 ML NEB NEB SCH (23:45)
[2023-06-09] MEDS ORDERED: guaiFENesin ER 600 MG TAB PO SCH (23:59)
[2023-06-10] MEDS ORDERED: Ipratropium/Albuterol 3 ML NEB NEB SCH (02:30)
[2023-06-10] MEDS: Ipratropium/Albuterol 3 ML NEB NEB SCH ×6 (03:02→21:13)
[2023-06-10 04:31] LABS: #Monocytes 0.1 thou/uL (0.11-0.59); #Neutrophils 9.3 thou/uL (1.40-6.50); %Basophils 0.3 % (0.0-1.0); %Lymphocytes 5.8 % (21.0-51.0); %Monocytes 0.9 % (0.0-10.0); Hematocrit 42.5 % (36.0-47.0); Mean Corpuscular HGB CONC 32.9 g/dL (32.0-36.0); Mean Corpuscular Volume 91.2 fl (78.0-98.0); Mean Platelet Volume 8.2 fL (7.4-10.4); Platelet Count 323 10x3/uL (130-400); RBC Distribution Width 13.2 % (11.5-14.5); Red Blood Cell (RBC) Count 4.66 mill/uL (4.20-5.40); White Blood Cell (WBC) Count 10.1 10x3/uL (4.8-10.8)
[2023-06-10 04:49] LABS: Lactic Acid 1.1 mmol/L (0.5-2.2)
[2023-06-10 04:53] LABS: ALT (SGPT) Less than 7 U/L (8-55); AST (SGOT) 11 U/L (5-34); Albumin 3.2 g/dL (3.5-5.0); Alkaline Phosphatase 111 U/L (40-110); Anion Gap 12 mmol/L (10-20); BUN (Urea Nitrogen) 5 mg/dL (9.8-20.1); Bilirubin, Total 0.3 mg/dL (0.2-1.2); Calc. Creatinine Clearance 158 mL/min (70-130); Carbon Dioxide 21 mmol/L (22-29); Chloride 109 mmol/L (98-107); Estimated GFR 86; Globulin 2.9 g/dL (2.4-3.5); Glucose 196 mg/dL (70-105); Potassium 4.3 mmol/L (3.5-5.1); Protein, Total 6.1 g/dL (6.0-8.3); Sodium 138 mmol/L (136-145)
[2023-06-10] MEDS: Aspirin 81 mg Enteric Coated Tablet PO SCH (08:59)
[2023-06-10] MEDS: QUEtiapine 200 MG TAB PO SCH ×2 (08:59→20:57)
[2023-06-10] MEDS ORDERED: Non-Formulary Item 1 EACH (Tiotropium [Spiriva Handihaler] 18 MCG Box) INH SCH (09:00)
[2023-06-10] MEDS: predniSONE 20 MG TAB PO SCH (09:00)
[2023-06-10] MEDS: Enoxaparin 40 MG (0.4 mL) SYRINGE SC SCH (09:00)
[2023-06-10] MEDS: guaiFENesin ER 600 MG TAB PO SCH ×2 (09:00→20:57)
[2023-06-10] MEDS: metFORMIN 500 MG TAB PO SCH (09:00)
[2023-06-10] MEDS: Atorvastatin Calcium 20 MG TAB PO SCH (09:00)
[2023-06-10] MEDS ORDERED: (Revefenacin [Yupelri] 175 MCG/3 ML Vial.Neb) NEB SCH (09:00)
[2023-06-10] MEDS ORDERED: Glucagon 1 MG/ML KIT IM PRN (09:08)
[2023-06-10] MEDS ORDERED: HumaLOG 300 UNITS/3 ML VIAL SC PRN ×2 (09:08)
[2023-06-10] MEDS ORDERED: Dextrose 5% in Water 1,000 ML IV PRN (09:08)
[2023-06-10] MEDS ORDERED: Dextrose 50% Abboject 50 ML SYRINGE SLOW IVP PRN (09:08)
[2023-06-10] MEDS ORDERED: Promethazine 25 MG TAB PO PRN (10:38)
[2023-06-10] MEDS: Benzocaine/Menthol 1 LOZ LOZ PO PRN ×2 (11:23→21:07)
[2023-06-10] MEDS ORDERED: LevoFLOXacin 750 mg/D5W 750 MG in Premix 1 BAG IVPB SCH (21:00)
[2023-06-10] MEDS ORDERED: traZODone HCl 150 MG TAB PO SCH (21:00)
[2023-06-10] MEDS ORDERED: Azithromycin 500 MG in Sodium Chloride 0.9% 250 ML 250 ML IVPB SCH (21:00)
[2023-06-10] MEDS ORDERED: cefTRIAXone\\ROCEPHIN 1 GM in Sodium Chloride 0.9% 100 ML IVPB SCH (21:00)
[2023-06-11] MEDS: Ipratropium/Albuterol 3 ML NEB NEB SCH ×2 (03:39→10:21)
[2023-06-11 07:36] LABS: #Eosinphils 0.1 thou/uL (0.0-0.7); #Monocytes 0.7 thou/uL (0.11-0.59); #Neutrophils 9.1 thou/uL (1.40-6.50); %Basophils 0.2 % (0.0-1.0); %Eosinophils 0.4 % (0.0-10.0); %Lymphocytes 16.2 % (21.0-51.0); %Monocytes 5.7 % (0.0-10.0); %Neutrophils 76.4 % (42.0-75.0); Hematocrit 37.2 % (36.0-47.0); Hemoglobin 12.1 g/dL (12.0-16.0); Mean Corpuscular HGB CONC 32.5 g/dL (32.0-36.0); Mean Corpuscular Hemoglobin 29.8 pg (27.0-31.0); Mean Corpuscular Volume 91.6 fl (78.0-98.0); Platelet Count 310 10x3/uL (130-400); RBC Distribution Width 13.2 % (11.5-14.5); Red Blood Cell (RBC) Count 4.06 mill/uL (4.20-5.40)
[2023-06-11 08:07] VITALS: BP 117/78; TEMP 98.1
[2023-06-11 08:17] LABS: ALT (SGPT) Less than 7 U/L (8-55); AST (SGOT) 9 U/L (5-34); Albumin 2.9 g/dL (3.5-5.0); Alkaline Phosphatase 85 U/L (40-110); Anion Gap 11 mmol/L (10-20); BUN (Urea Nitrogen) 9 mg/dL (9.8-20.1); Bilirubin, Total 0.2 mg/dL (0.2-1.2); Calc. Creatinine Clearance 176 mL/min (70-130); Calcium 8.1 mg/dL (7.8-10.44); Carbon Dioxide 26 mmol/L (22-29); Chloride 107 mmol/L (98-107); Estimated GFR 97; Globulin 2.3 g/dL (2.4-3.5); Glucose 97 mg/dL (70-105); Potassium 3.9 mmol/L (3.5-5.1); Protein, Total 5.2 g/dL (6.0-8.3); Sodium 140 mmol/L (136-145)
[2023-06-11] MEDS: Enoxaparin 40 MG (0.4 mL) SYRINGE SC SCH (08:33)
[2023-06-11] MEDS: QUEtiapine 200 MG TAB PO SCH (08:33)
[2023-06-11] MEDS: Atorvastatin Calcium 20 MG TAB PO SCH (08:33)
[2023-06-11] MEDS: Aspirin 81 mg Enteric Coated Tablet PO SCH (08:33)
[2023-06-11] MEDS: guaiFENesin ER 600 MG TAB PO SCH (08:33)
[2023-06-11] MEDS: predniSONE 20 MG TAB PO SCH (08:33)
[2023-06-11] MEDS: metFORMIN 500 MG TAB PO SCH (08:33)
[2023-06-11] MEDS ORDERED: OZEMPIC 2 MG/3 ML SC SCH (09:00)
[2023-06-11] MEDS ORDERED: Ipratropium/Albuterol 3 ML NEB NEB SCH ×2 (10:00→13:00)
== END 2023-06-11 14:28 | disposition home or self-care (01) | DRG 871 ==
LOC: T4-A 22:25 → INTOOBSV 22:25 → OBSVTOIN 06-11 11:39
PROVIDERS: ADMIT Emergency Medicine; ATTEND Emergency Medicine
DX: A41.9 Sepsis, unspecified organism (principal); J18.9 Pneumonia, unspecified organism; J96.10 Chronic respiratory failure, unspecified whether with hypoxia or hypercapnia; J44.1 Chronic obstructive pulmonary disease with (acute) exacerbation; J44.0 Chronic obstructive pulmonary disease with (acute) lower respiratory infection; J90 Pleural effusion, not elsewhere classified; J45.901 Unspecified asthma with (acute) exacerbation; Z68.42 Body mass index [BMI] 45.0-49.9, adult; I50.9 Heart failure, unspecified; E11.9 Type 2 diabetes mellitus without complications; F43.10 Post-traumatic stress disorder, unspecified; F31.9 Bipolar disorder, unspecified; F41.1 Generalized anxiety disorder; E66.01 Morbid (severe) obesity due to excess calories; Z79.51 Long term (current) use of inhaled steroids; Z79.82 Long term (current) use of aspirin; Z79.899 Other long term (current) drug therapy; Z86.73 Personal history of transient ischemic attack (TIA), and cerebral infarction without residual deficits; Z11.52 Encounter for screening for COVID-19; Z79.84 Long term (current) use of oral hypoglycemic drugs
CPT/HCPCS: 36415; 36416; 71260; 80053; 82103; 83605; 85025; 87081; 94640; J1650; J1956; J7512; J7620; Q0169

== ENCOUNTER 2024-05-05 13:36 | Outpatient (CLI) | payer OTHER | END 2024-05-05 13:37 | disposition home or self-care (01) | LOC: BICMAMMO 13:36 | PROVIDERS: ATTEND Student in an Organized Health Care Education/Training Program | DX: N63.15 Unspecified lump in the right breast, overlapping quadrants (principal); N63.20 Unspecified lump in the left breast, unspecified quadrant; N64.4 Mastodynia | CPT/HCPCS: 76642; 77066; G0279 ==